=== PATIENT | male | born 1965 | race Caucasian/White ===

== ENCOUNTER 2020-12-12 09:54 | Emergency (ER) | payer OTHER ==
[~2020-12-12] VITALS: Ht 182.9 cm; Wt 90.7 kg
[2020-12-12] MEDS ORDERED: PEPCID AC20 MG PO (16:18)
[2020-12-12] MEDS ORDERED: LEVSIN0.125 MG PO (16:18)
[2020-12-12] MEDS ORDERED: FLAGYL500MG PO (16:18)
[2020-12-12] MEDS ORDERED: INTESTINEX680 M1 PO (16:18)
[2020-12-12] MEDS ORDERED: CIPROFLOXACIN500 MG PO (16:18)
== END 2020-12-12 16:52 | disposition home or self-care (01) ==
LOC: ER 09:54
DX: R11.2 Nausea with vomiting, unspecified (principal); R10.13 Epigastric pain; R19.7 Diarrhea, unspecified; Z20.822 Contact with and (suspected) exposure to COVID-19

== ENCOUNTER 2022-10-01 12:45 | Outpatient (CLI) | payer OTHER ==
[~2022-10-01 12:45] MED LIST: CIPROFLOXACIN500 MG PO; FLAGYL500MG PO; INTESTINEX680 M1 PO; LEVSIN0.125 MG PO; PEPCID AC20 MG PO
== END 2022-10-01 12:56 | disposition home or self-care (01) ==
LOC: RAD 12:45
PROVIDERS: ATTEND Chiropractor
DX: M54.2 Cervicalgia (principal); M54.6 Pain in thoracic spine; M54.50 Low back pain, unspecified

== ENCOUNTER 2023-07-14 10:09 | Outpatient (CLI) | payer OTHER | END 2023-07-14 10:20 | disposition home or self-care (01) | LOC: TOM 10:09 | DX: R44.9 Unspecified symptoms and signs involving general sensations and perceptions (principal) ==

== ENCOUNTER 2024-07-25 15:34 | Outpatient (CLI) | payer OTHER | END 2024-07-25 15:42 | disposition home or self-care (01) | LOC: RAD 15:34 | DX: M54.51 Vertebrogenic low back pain (principal); M16.30 Unilateral osteoarthritis resulting from hip dysplasia, unspecified hip ==